=== PATIENT | female | born 1960 | race African-American/Black ===

== ENCOUNTER 2017-09-10 12:02 | Emergency (ER) | payer MEDICARE, MEDICAID ==
[2017-09-10] MEDS ORDERED: Ketorolac Tromethamine 30 MG/ML VIAL ONE (13:14)
[2017-09-10] MEDS ORDERED: Methocarbamol 1 GM in Sodium Chloride 0.9% 250 ML 250 ML IVPB SCH (13:30)
--- NOTE | 2017-09-10 13:47 | RAD ---
FOUR VIEWS OF THE LEFT KNEE COMPARISON: None. HISTORY: Fall down stairs with left knee pain. FINDINGS: Four views of the left knee show no evidence of acute fracture or dislocation. There is mild joint space narrowing in the patellofemoral and lateral femorotibial compartments. IMPRESSION: Mild left knee osteoarthritis without acute osseous abnormality. POS: [facility]
[2017-09-10 14:21] LABS: Bilirubin Negative (Negative); Blood, Urine Negative (Negative); Glucose, Urine (Dipstick) >=1000 mg/dL (Negative); Ketone, Urine Negative (Negative); Nitrite Negative (Negative); Protein, Urine (Dipstick) Negative (Neg-Trace); Urobilinogen 0.2 mg/dL (0.2-1.0)
--- NOTE | 2017-09-10 14:56 | RAD ---
3 VIEWS PELVIS: Date: 09/10/17 COMPARISON: None. HISTORY: Fell down stairs with left-sided pelvic pain. FINDINGS: Three views of the pelvis show no evidence of fracture or dislocation. No degenerative changes seen in either hip. The sacroiliac joints and pubic symphysis are unremarkable. Phleboliths are seen in t he pelvis. IMPRESSION: No evidence of acute osseous abnormality. POS: [facility]
== END 2017-09-10 15:47 | disposition home or self-care (01) ==
LOC: ERS 12:02
DX: S80.02XA Contusion of left knee, initial encounter (principal); S70.02XA Contusion of left hip, initial encounter; S30.0XXA Contusion of lower back and pelvis, initial encounter; E11.9 Type 2 diabetes mellitus without complications; E78.5 Hyperlipidemia, unspecified; F41.9 Anxiety disorder, unspecified; F20.9 Schizophrenia, unspecified; I10 Essential (primary) hypertension; M10.9 Gout, unspecified; M06.9 Rheumatoid arthritis, unspecified; Z79.82 Long term (current) use of aspirin; Z79.899 Other long term (current) drug therapy; W10.9XXA Fall (on) (from) unspecified stairs and steps, initial encounter
CPT/HCPCS: 72190; 81003; 96365; 96375; J1885; J2800; J7050

== ENCOUNTER 2018-02-03 14:19 | Outpatient (CLI) | payer MEDICARE, MEDICAID ==
[2018-02-03 15:54] LABS: Bilirubin Negative (Negative); Blood, Urine Negative (Negative); Clarity CLEAR (Clear); Glucose, Urine (Dipstick) >=1000 mg/dL (Negative); Leukocyte Negative (Negative); Nitrite Negative (Negative); Protein, Urine (Dipstick) Negative (Neg-Trace); Specific Gravity, Urine 1.025 (1.002-1.036); Urobilinogen 0.2 mg/dL (0.2-1.0); pH, Urine 6.5 (5.0-9.0)
[2018-02-03 16:03] LABS: Bacteria/HPF None Seen HPF (None Seen); Hyaline Casts/LPF 0-3 HYALINE CAST LPF (0-3 Hyaline); RBC/HPF None Seen HPF (0-3); Squamous Epithelial 0-3 HPF (0-3); WBC/HPF 0-3 HPF (0-3)
[2018-02-03 16:05] LABS: Anion Gap 13 mmol/L (10-20); BUN (Urea Nitrogen) 18 mg/dL (9.8-20.1); Calc. Creatinine Clearance 0 mL/min (70-130); Calcium 10.2 mg/dL (7.8-10.44); Carbon Dioxide 29 mmol/L (22-29); Chloride 102 mmol/L (98-107); Estimated GFR-MDRD 67; Glucose 217 mg/dL (70-105); Potassium 3.7 mmol/L (3.5-5.1); Sodium 140 mmol/L (136-145)
== END 2018-02-03 14:20 | disposition home or self-care (01) ==
LOC: BICULT 14:19
PROVIDERS: ATTEND Urology
DX: N20.0 Calculus of kidney (principal)
CPT/HCPCS: 36415; 76770; 80048; 81001; 87086; 88112

== ENCOUNTER 2018-09-13 09:33 | Outpatient (CLI) | payer MEDICARE, MEDICAID ==
--- NOTE | 2018-09-13 11:33 | ULT ---
RENAL ULTRASOUND: HISTORY: Congenital cyst. COMPARISON: 02/03/2018, 07/14/2016. TECHNIQUE: Sagittal and transverse imaging of the kidneys is performed. FINDINGS: RIGHT KIDNEY: Renal cortical thinning. No hydronephrosis. The right kidney measures 10.6 x 11.3 x 5.4 cm. LEFT KIDNEY: Renal cortical thinning. No hydronephrosis. The left kidney measures 6.1 x 5.4 x 11.0 cm. There is a 0.6 x 0.8 x 0.9 cm anechoic focus in the mid portion of the left knee likely representing a small cortical cyst. There is a hypoechoic focus in the inferior aspect of the left kidney measuring 0.8 x 1.1 x 1.0 cm. This lesion does not have imaging features compatible with a simple cyst. Previously , this lesion measured 1.9 x 1.3 x 1.5 cm. IMPRESSION: 1. Stable cyst in the mid pole of the left kidney. 2. Indeterminate lesion in the lower pole of the left kidney which does not have imaging features of a simple cyst. Correlation made with MRI from 08/22/2015, CT 12/09/2015 does not demonstrate this fin ding. Continued surveillance with possible abdomen MRI or renal mass protocol CT is recommended. POS: [facility]
== END 2018-09-13 09:34 | disposition home or self-care (01) ==
LOC: BICULT 09:33
PROVIDERS: ATTEND Urology
DX: Q61.02 Congenital multiple renal cysts (principal); N28.1 Cyst of kidney, acquired; N28.9 Disorder of kidney and ureter, unspecified
CPT/HCPCS: 76770

== ENCOUNTER 2018-09-27 08:33 | Outpatient (CLI) | payer MEDICARE, MEDICAID ==
[2018-09-27] MEDS ORDERED: Iopamidol 370 76% 100 ML VIAL ONE (09:59)
--- NOTE | 2018-09-27 11:59 | CT ---
CT ABDOMEN WITHOUT AND WITH COTNRAST: COMPARISON: 12/09/2015 and renal ultrasound 09/13/2018. HISTORY: Hematuria and abnormal reading on prior imaging. TECHNIQUE: Multiple contiguous axial images were obtained in a CT of the abdomen only without and with IV contra st. Postcontrast images were obtained in nephrographic and expiratory phases. FINDINGS: No calcifications were seen in either kidney. There are subcentimeter hypodensities in both kidneys which likely represent cysts. These are stable compared to the prior examination. No suspicious torres al mass is identified. No hydronephrosis is present. The liver, gallbladder, adrenal glands, spleen, and pancreas are unremarkable. No free air, free fluid, or stranding changes are seen in the abdomen. The visualized large and smal l bowel are unremarkable. No abdominal adenopathy is seen. Atherosclerotic calcifications are seen in the aorta. There is a small fat-containing umbilical hernia. Degenerative changes are seen in the spine. The v isualized inferior thorax is unremarkable. IMPRESSION: Bilateral renal cysts. POS: [facility]
== END 2018-09-27 08:34 | disposition home or self-care (01) ==
LOC: BICCT 08:33
PROVIDERS: ATTEND Urology
DX: N28.1 Cyst of kidney, acquired (principal)
CPT/HCPCS: 74170

== ENCOUNTER 2019-05-31 10:09 | Emergency (ER) | payer MEDICARE, MEDICAID ==
[2019-05-31] MEDS ORDERED: Acetaminophen 500 MG TAB ONE (11:16)
[2019-05-31 11:23] LABS: #Basophils 0.1 thou/uL (0.0-0.2); #Lymphocytes 1.8 thou/uL (1.20-3.40); #Monocytes 0.4 thou/uL (0.11-0.59); %Basophils 0.9 % (0.0-1.0); %Eosinophils 0.2 % (0.0-10.0); %Lymphocytes 28.2 % (21.0-51.0); %Monocytes 6.5 % (0.0-10.0); %Neutrophils 64.2 % (42.0-75.0); Hemoglobin 13.8 g/dL (12.0-16.0); Mean Corpuscular HGB CONC 32.9 g/dL (32.0-36.0); Mean Corpuscular Hemoglobin 27.2 pg (27.0-31.0); Mean Corpuscular Volume 82.7 fL (78.0-98.0); Mean Platelet Volume 7.3 fL (7.4-10.4); Platelet Count 311 thou/uL (130-400); RBC Distribution Width 13.7 % (11.5-14.5); Red Blood Cell (RBC) Count 5.08 mill/uL (4.20-5.40); White Blood Cell (WBC) Count 6.2 thou/uL (4.8-10.8)
--- NOTE | 2019-05-31 11:32 | RAD ---
XR Chest 1 View Portable History: Chest pain Comparison: Radiograph 2013 Findings: Lungs are clear. No pneumothorax. No effusion. No acute osseous abnormality. Impression: No acute intrathoracic abnormality.
[2019-05-31 11:47] LABS: ALT (SGPT) 61 U/L (8-55); AST (SGOT) 57 U/L (5-34); Albumin 4.1 g/dL (3.5-5.0); Alkaline Phosphatase 98 U/L (40-150); Anion Gap 14 mmol/L (10-20); BUN (Urea Nitrogen) 13 mg/dL (9.8-20.1); Bilirubin, Total 0.5 mg/dL (0.2-1.2); CK (CPK) 133 U/L (29-168); Calc. Creatinine Clearance 0 mL/min (70-130); Calcium 9.7 mg/dL (7.8-10.44); Carbon Dioxide 24 mmol/L (22-29); Chloride 102 mmol/L (98-107); Estimated GFR-MDRD 76; Globulin 2.9 g/dL (2.4-3.5); Glucose 190 mg/dL (70-105); Potassium 3.5 mmol/L (3.5-5.1); Sodium 136 mmol/L (136-145)
[2019-05-31 12:34] LABS: Bilirubin Negative (Negative); Blood, Urine Negative (Negative); Clarity Clear (Clear); Glucose, Urine (Dipstick) Greater than 1000 mg/dL (Negative); Leukocyte Negative Leu/uL (Negative); Nitrite Negative (Negative); Protein, Urine (Dipstick) Negative (Neg-Trace); Urobilinogen Normal mg/dL (Less than 2)
[2019-05-31 14:53] LABS: Troponin I Less than 0.010 ng/mL (< 0.028)
[2019-05-31] MEDS ORDERED: Ketorolac Tromethamine 30 MG/ML VIAL ONE (15:12)
--- NOTE | 2019-06-03 23:43 | EKG ---
Test Reason : Blood Pressure : / mmHG Vent. Rate : 117 BPM Atrial Rate : 117 BPM P-R Int : 144 ms QRS Dur : 076 ms QT Int : 336 ms P-R-T Axes : 041 -62 049 degrees QTc Int : 468 ms Sinus tachycardia Possible Left atrial enlargement Left anterior fascicular block Left ventricular hypertrophy Abnormal ECG Confirmed by DAO ESTEVES ([id number]), graphic editor MAURA GARZA ([id number] on 06/03/2019 11:42:44 PM Referred By: Confirmed By:DAO ESTEVES
== END 2019-05-31 15:46 | disposition home or self-care (01) ==
LOC: ERS 10:09
DX: R07.89 Other chest pain (principal); B34.9 Viral infection, unspecified; E11.9 Type 2 diabetes mellitus without complications; I10 Essential (primary) hypertension; F41.9 Anxiety disorder, unspecified; F20.9 Schizophrenia, unspecified; E78.5 Hyperlipidemia, unspecified
CPT/HCPCS: 36415; 71045; 80053; 81003; 82550; 83880; 84484; 85025; 87804; 93005; 96374; J1885